=== PATIENT | male | born 1995 | race African-American/Black ===

== ENCOUNTER 2021-03-08 07:16 | Emergency (ER) | payer MEDICAID ==
[~2021-03-08] VITALS: Ht 162.6 cm; Wt 70.0 kg
[2021-03-08 07:24] VITALS: BP 147/76
[2021-03-08] MEDS ORDERED: IMIQ1CRE TP (09:19)
[2021-03-08] MEDS ORDERED: TRAM50TA3 MT (09:19)
== END 2021-03-08 10:03 | disposition home or self-care (01) ==
LOC: ER 07:16
DX: R21 Rash and other nonspecific skin eruption (principal)
CPT/HCPCS: 99283